=== PATIENT | male | born 1995 | race Caucasian/White ===

== ENCOUNTER 2016-12-08 23:40 | Emergency (ER) | payer OTHER | END 2016-12-09 00:04 | disposition home or self-care (01) | LOC: ER 23:40 | DX: S20.219A Contusion of unspecified front wall of thorax, initial encounter (principal); S90.31XA Contusion of right foot, initial encounter; F17.200 Nicotine dependence, unspecified, uncomplicated; Z88.1 Allergy status to other antibiotic agents; Z88.8 Allergy status to other drugs, medicaments and biological substances; V86.99XA Unspecified occupant of other special all-terrain or other off-road motor vehicle injured in nontraffic accident, initial encounter | CPT/HCPCS: 70450; 71010; 73630-RT; 93005; 99284; A9270-GY ==